=== PATIENT | male | born 1960 | race Caucasian/White ===

== ENCOUNTER 2021-05-03 11:22 | Day surgery (SDC) | payer BC ==
[2021-05-03] VITALS (11 sets, daily range): BP systolic 113–136; BP diastolic 71–98
[~2021-05-03] VITALS: Ht 188 cm; Wt 116.3 kg
[2021-05-03] MEDS ORDERED: fentaNYL/PF 50MCG/1 ML 2ML syringe IV ONE (11:45)
[2021-05-03] MEDS ORDERED: MIDAZolam 1mg/ml 10ml vial IV ONE (11:45)
[2021-05-03] MEDS ORDERED: DILT-88 PO (11:56)
[2021-05-03] MEDS ORDERED: APIX5TAB3 PO (11:56)
[2021-05-03] MEDS ORDERED: DOXY20TA3 PO (11:56)
[2021-05-03] MEDS ORDERED: normal saline 1000ml 1,000 ML IV SCH ×2 (12:00)
[2021-05-03] MEDS ORDERED: LORazepam 0.5 MG tablet PO ONE (12:05)
== END 2021-05-03 15:20 | disposition home or self-care (01) ==
LOC: SSTAY O 11:22
PROVIDERS: ATTEND Internal Medicine Interventional Cardiology
DX: I48.91 Unspecified atrial fibrillation (principal); I10 Essential (primary) hypertension; E66.9 Obesity, unspecified; Z68.32 Body mass index [BMI] 32.0-32.9, adult; E78.5 Hyperlipidemia, unspecified; F41.8 Other specified anxiety disorders; Z79.01 Long term (current) use of anticoagulants; Z79.899 Other long term (current) drug therapy
CPT/HCPCS: 92960; J2250; J3010; J7030

== ENCOUNTER 2021-05-24 10:20 | Day surgery (SDC) | payer BC ==
[~2021-05-24] VITALS: Ht 195.6 cm; Wt 115.7 kg
[2021-05-24] VITALS (13 sets, daily range): BP systolic 108–136; BP diastolic 72–90
[~2021-05-24 10:20] MED LIST: APIX5TAB3 PO; DILT-88 PO; DOXY20TA3 PO
[2021-05-24] MEDS ORDERED: LEVO50TA PO (10:46)
[2021-05-24] MEDS ORDERED: HYDR-3972 PO (10:49)
[2021-05-24] MEDS ORDERED: SOTA80TA73 PO (10:49)
[2021-05-24] MEDS ORDERED: TOBR5DRO57 LEFTEYE (10:51)
[2021-05-24] MEDS ORDERED: normal saline 1000ml 1,000 ML IV SCH (10:55)
[2021-05-24] MEDS ORDERED: MIDAZolam 1mg/ml 10ml vial IV ONE (10:55)
[2021-05-24] MEDS ORDERED: fentaNYL/PF 50MCG/1 ML 2ML syringe IV ONE (10:55)
== END 2021-05-24 16:45 | disposition home or self-care (01) ==
LOC: SSTAY O 10:20
PROVIDERS: ATTEND Internal Medicine Interventional Cardiology
DX: I48.91 Unspecified atrial fibrillation (principal); I10 Essential (primary) hypertension; E78.5 Hyperlipidemia, unspecified; F41.8 Other specified anxiety disorders; Z79.01 Long term (current) use of anticoagulants; Z79.899 Other long term (current) drug therapy
CPT/HCPCS: 92960; 93005; J2250; J3010; J7030